=== PATIENT | male | born 1975 | race Caucasian/White ===

== ENCOUNTER 2019-10-18 05:58 | Day surgery (SDC) | payer MEDICAID ==
[~2019-10-18] VITALS: Ht 180.3 cm; Wt 95.3 kg
[2019-10-18] MEDS ORDERED: fentaNYL 0.05 MG/ML VIAL ONE (07:31)
[2019-10-18] MEDS ORDERED: LIDOCAINE 2% 100 MG/5 ML UJET TP ONE (07:31)
[2019-10-18] MEDS ORDERED: fentaNYL 0.05 MG/ML VIAL IVP ONE (08:40)
== END 2019-10-18 08:43 | disposition home or self-care (01) ==
LOC: MDS 05:58 → MMU 06:06 → MDS 08:43
PROVIDERS: ATTEND Internal Medicine Gastroenterology
DX: K62.5 Hemorrhage of anus and rectum (principal); K62.89 Other specified diseases of anus and rectum; Z87.891 Personal history of nicotine dependence; Z79.899 Other long term (current) drug therapy
CPT/HCPCS: 45378; J3010